=== PATIENT | female | born 1965 | race Caucasian/White ===

== ENCOUNTER 2019-05-29 18:56 | Emergency (ER) | payer SELFPAY ==
[~2019-05-29] VITALS: Ht 172.7 cm; Wt 68.0 kg
[2019-05-29 19:24] VITALS: BP 132/92
[2019-05-29] MEDS ORDERED: FLUORESCEIN OPHTH TEST STRIP. OS ONE (19:30)
[2019-05-29] MEDS ORDERED: TETRACAINE 0.5% OPHTH SOLUTION 4ML BOTTLE. OS ONE (19:30)
[2019-05-29] MEDS ORDERED: HYDR-3164 PO (19:54)
--- NOTE | 2019-05-29 19:55 | PHYS DOC ---
Past Medical History Past Medical History: No Pertinent History Past Surgical History: No Surgical History Alcohol Use: Rarely Drug Use: Marijuana Adult General Chief Complaint Chief Complaint: FOREIGN BODY/EYES HPI HPI Patient is a 53 year old female who presents to the ED today complaining of right eye foreign body sensation. Patient states she was combing her hair with a hair brush when she accidentally scratched her eye with the brush bristles, this happened 4 days ago. Patient denies any vision loss. Review of Systems Review of Systems Constitutional: Denies fever or chills [] Eyes: Reports foreign body sensation to the right eye Musculoskeletal: Denies back pain or joint pain [] Integument: Denies rash or skin lesions [] Neurologic: Denies headache, focal weakness or sensory changes [] All other systems were reviewed and found to be within normal limits, except as documented in this note. Current Medications Current Medications Current Medications Medications (Trade) Dose Ordered Sig/Daisha Start Time Stop Time Status Last Admin Dose Admin Acetaminophen/ Hydrocodone Bitart (Lortab 5/325) 2 tab 1X ONCE 05/29/19 20:00 05/29/19 20:01 Diphtheria/ Tetanus/Acell Pertussis (Boostrix) 0.5 ml ONCE ONCE 05/29/19 20:00 05/29/19 20:01 Erythromycin (Romycin) 0.25 inch 1X ONCE 05/29/19 20:00 05/29/19 20:01 Fluorescein Sodium (Ful-Purvi) 1 strip 1X ONCE 05/29/19 19:30 05/29/19 19:31 DC 05/29/19 19:35 1 STRIP Tetracaine HCl (Tetracaine) 1 drop 1X ONCE 05/29/19 19:30 05/29/19 19:31 DC 05/29/19 19:35 1 DROP Allergies Allergies Allergies Coded Allergies Type Severity Reaction Last Updated Verified No Known Drug Allergies 05/29/19 No Physical Exam Physical Exam Constitutional: Well developed, well nourished, no acute distress, non-toxic appearance. [] Eyes: PERRLA, EOMI, right conjunctiva is moderately injected with clear fluid Right eye exam under brannon lamp Right eye was numbed with tetracaine and stained with fluorescein. There is an obvious small corneal abrasion noted at 1600 position. Skin: Warm, dry, no erythema, no rash. [] Neurologic: Alert and oriented X 3, normal motor function, normal sensory function, no focal deficits noted. [] Psychologic: Affect normal, judgement normal, mood normal. [] Current Patient Data Vital Signs Vital Signs Date Time Temp Pulse Resp B/P (MAP) Pulse Ox O2 Delivery O2 Flow Rate FiO2 05/29/19 19:24 98.1 85 18 132/92 (105) 96 Room Air 98.1 EKG EKG [] Radiology/Procedures Radiology/Procedures [] Course & Med Decision Making Course & Med Decision Making Pertinent Labs and Imaging studies reviewed. (See chart for details) This is a 53-year-old female patient who presents to the ED today with a corneal abrasion to the right eye. Discharged on erythromycin. Follow-up with primary care doctor or real estate sales associate in one week. Tetanus updated. Dragon Disclaimer Dragon Disclaimer This electronic medical record was generated, in whole or in part, using a voice recognition dictation system. Departure Departure Impression: Primary Impression: Corneal abrasion, right Disposition: HOME, SELF-CARE Condition: STABLE Referrals: NO PCP (PCP) AZUCENA WELLER MD follow up in one week Patient Instructions: Eye - Corneal Abrasion, [id number] Additional Instructions: You have a corneal abrasion to the right eye. Use erythromycin ointment every 4 hours while awake to the affected eye for 7 days. Please follow-up with your own doctor or the provided real estate sales associate in 1-2 weeks. Take the prescribed pain medicine as needed for pain. You can patch the eye for comfort. Scripts Hydrocodone/Apap 5-325 (NORCO 5-325 TABLET) 1 Each Tablet 1 TAB PO Q6HRS, #12 TAB Prov: ANNI KEY APRN 05/29/19 Problem Qualifiers Primary Impression: Corneal abrasion, right Encounter type: initial encounter Qualified Codes: S05.01XA - Injury of conjunctiva and corneal abrasion without foreign body, right eye, initial encounter ANNI KEY APRN May 29, 2019 19:55
[2019-05-29] MEDS ORDERED: DIPHTH,PERTUSS(ACELL),TET TOX 0.5 ML DISP.SYRIN. VAX IM ONE (20:00)
[2019-05-29] MEDS ORDERED: ERYTHROMYCIN 0.5% OPHTH OINTMENT 1GM TUBE. OS ONE (20:00)
[2019-05-29] MEDS ORDERED: HYDROcodone/APAP 5/325MG 1 TAB TABLET PO ONE (20:00)
== END 2019-05-29 20:03 | disposition home or self-care (01) ==
LOC: ER 18:56
DX: S05.01XA Injury of conjunctiva and corneal abrasion without foreign body, right eye, initial encounter (principal); W22.8XXA Striking against or struck by other objects, initial encounter; Y93.89 Activity, other specified; Y92.89 Other specified places as the place of occurrence of the external cause; Y99.8 Other external cause status
CPT/HCPCS: 90471; 90715; 99283-25

== ENCOUNTER 2021-12-07 21:07 | Emergency (ER) | payer SELFPAY ==
[~2021-12-07] VITALS: Ht 170.2 cm; Wt 70.4 kg
[~2021-12-07 21:07] MED LIST: ACET325T9 PO; DOCU-148 PO; HYDR-3164 PO; LACT1CAP6 PO; ONDA4TAB7 PO
[2021-12-07] MEDS ORDERED: DEXAMETHASONE SOD PHOS 20 MG/5 ML VIAL. IV ONE (21:30)
[2021-12-07] MEDS ORDERED: BENZOCAINE/MENTHOL LOZENGE. PO PRN (21:30)
[2021-12-07] MEDS ORDERED: IV NORMAL SALINE 1000ML BAG 1,000 ML IV SCH (21:30)
[2021-12-07 22:10] LABS: BASO % 0 % (0-3); EOS # 0.1 x10^3/uL (0.0-0.7); EOS % 1 % (0-3); HEMATOCRIT 43.6 % (36.0-47.0); HEMOGLOBIN 14.6 g/dL (12.0-15.5); LYMPH # 1.6 x10^3/uL (1.0-4.8); LYMPH % 18 % (24-48); MEAN CORPUSCULAR HEMOGLOBIN 31 pg (25-35); MEAN CORPUSCULAR HGB CONC 34 g/dL (31-37); MEAN CORPUSCULAR VOLUME 93 fL (79-100); MONO # 0.8 x10^3/uL (0.0-1.1); MONO % 10 % (0-9); NEUT # 6.2 x10^3/uL (1.8-7.7); NEUT % 70 % (31-73); PLATELET COUNT 270 x10^3/uL (140-400); RED BLOOD COUNT 4.71 x10^6/uL (3.50-5.40); RED CELL DISTRIBUTION WIDTH 12.8 % (11.5-14.5); WHITE BLOOD COUNT 8.8 x10^3/uL (4.0-11.0)
[2021-12-07 22:37] LABS: INFLUENZA A PATIENT NEGATIVE (NEGATIVE); INFLUENZA B PATIENT NEGATIVE (NEGATIVE)
[2021-12-07 22:38] LABS: CALCIUM 8.2 mg/dL (8.5-10.1); CREATININE 0.7 mg/dL (0.6-1.0); GFR 86.2; POTASSIUM 3.9 mmol/L (3.5-5.1)
[2021-12-07 22:44] LABS: ALBUMIN 2.9 g/dL (3.4-5.0); ALBUMIN/GLOBULIN RATIO 0.7 (1.0-1.7); TOTAL BILIRUBIN 0.5 mg/dL (0.2-1.0); TOTAL PROTEIN 7.1 g/dL (6.4-8.2)
[2021-12-07] MEDS ORDERED: IOHEXOL 350 MG/ML 100 ML VIAL. IV ONE (22:45)
--- NOTE | 2021-12-07 22:48 | PHYS DOC ---
Past Medical History Past Medical History: Other Additional Past Medical Histor: C DIFF 2010 Past Surgical History: Other Additional Past Surgical Histo: BREAST BIOPSY Smoking Status: Current Every Day Smoker Alcohol Use: Rarely Drug Use: Marijuana General Adult EDM: Chief Complaint: DYSPNEA/RESPIRATORY DISTRESS HPI: HPI: 56 yo F past medical history of Bacot use, presents the ED with complaints of sore throat, dry cough, shortness of breath, hoarse voice and painful swallowing for the past 2 weeks. Has been vaccinated for Covid. Reports tobacco use daily but has never been diagnosed with COPD. No known sick contacts or exposure to Covid. Has never had a Covid infection. Denies any recent surgeries, hospitalizations, mobilizations. No associated chest pain or pressure, leg swelling, near-syncope or syncope. Reports hoarse voice has been progressive for the past year. Has a family history of multiple cancers. Brother from lung cancer, mother from breast cancer and father from B-cell lymphoma, metastatic to the brain. Review of Systems: Review of Systems: Constitutional: Denies fever or chills. [] Eyes: Denies change in visual acuity. [] HENT: Denies nasal congestion or rhinorrhea Respiratory: Denies increased work of breathing or hemoptysis Cardiovascular: Denies chest pain or edema. [] GI: Denies abdominal pain, nausea, vomiting, bloody stools or diarrhea. [] : Denies dysuria or hematuria Musculoskeletal: Denies back pain or joint pain. [] Integument: Denies rash or diaphoresis Neurologic: Denies headache, focal weakness or sensory changes. [] Endocrine: Denies polyuria or polydipsia. [] Lymphatic: Denies swollen glands. [] Psychiatric: Denies depression or anxiety. [] Heart Score: C/O Chest Pain: No Risk Factors: Risk Factors: DM, Current or recent (<one month) smoker, HTN, HLP, family history of CAD, obesity. Risk Scores: Score 0 - 3: 2.5% MACE over next 6 weeks - Discharge Home Score 4 - 6: 20.3% MACE over next 6 weeks - Admit for Clinical Observation Score 7 - 10: 72.7% MACE over next 6 weeks - Early Invasive Strategies Current Medications: Current Medications Medications (Trade) Dose Ordered Sig/Daisha Start Time Stop Time Status Last Admin Dose Admin Dexamethasone Sodium Phosphate (Decadron) 10 mg 1X ONCE 2/21/22 21:30 12/07/21 21:42 DC Sodium Chloride 1,000 ml @ 1,000 mls/hr Q1H 12/07/21 21:30 12/07/21 22:29 DC Throat Lozenges (Cepacol Sore Throat Lozenge) 1 carmen PRN Q2HRS PRN 12/07/21 21:30 Allergies: Allergies: Allergies Coded Allergies Type Severity Reaction Last Updated Verified No Known Drug Allergies 05/29/19 No Physical Exam: PE: Constitutional: Very hoarse voice with no drooling or stridor, no acute distress, non-toxic appearance. HENT: Normocephalic, atraumatic, erythematous pharyngeal tonsils and oropharynx with no exudates, no angioedema/head or neck swelling, normal tympanic membranes bilaterally, points to her right anterior neck just under her jaw as a source of pain/sore throat Eyes: EOMI, conjunctiva normal, no discharge. Neck: Normal range of motion, supple, no lymphadenopathy palpable, no nuchal rigidity or meningismus Cardiovascular: S1/2 present, regular rhythm Lungs & Thorax: Speaking in full sentences, bilateral equal chest rise, no tachypnea or increased work of breathing, no wheezing/rales/crackles, clear to auscultation bilaterally, 90% on room air Abdomen: soft, no tenderness, Skin: Warm, dry, no erythema, no rash. [] Extremities: No tenderness, no cyanosis, no lower extremity edema Neurologic: Alert and oriented X 3, normal motor function, normal sensory function, no focal deficits noted. [] Psychologic: Affect normal, judgement normal, mood normal. [] Current Patient Data: Labs: Laboratory Tests Test 12/07/21 22:01 White Blood Count 8.8 x10^3/uL (4.0-11.0) Red Blood Count 4.71 x10^6/uL (3.50-5.40) Hemoglobin 14.6 g/dL (12.0-15.5) Hematocrit 43.6 % (36.0-47.0) Mean Corpuscular Volume 93 fL (79-100) Mean Corpuscular Hemoglobin 31 pg (25-35) Mean Corpuscular Hemoglobin Concent 34 g/dL (31-37) Red Cell Distribution Width 12.8 % (11.5-14.5) Platelet Count 270 x10^3/uL (140-400) Neutrophils (%) (Auto) 70 % (31-73) Lymphocytes (%) (Auto) 18 % (24-48) L Monocytes (%) (Auto) 10 % (0-9) H Eosinophils (%) (Auto) 1 % (0-3) Basophils (%) (Auto) 0 % (0-3) Neutrophils # (Auto) 6.2 x10^3/uL (1.8-7.7) Lymphocytes # (Auto) 1.6 x10^3/uL (1.0-4.8) Monocytes # (Auto) 0.8 x10^3/uL (0.0-1.1) Eosinophils # (Auto) 0.1 x10^3/uL (0.0-0.7) Basophils # (Auto) 0.0 x10^3/uL (0.0-0.2) Sodium Level 143 mmol/L (136-145) Potassium Level 3.9 mmol/L (3.5-5.1) Chloride Level 105 mmol/L (98-107) Carbon Dioxide Level 30 mmol/L (21-32) Anion Gap 8 (6-14) Blood Urea Nitrogen 11 mg/dL (7-20) Creatinine 0.7 mg/dL (0.6-1.0) Estimated GFR (Cockcroft-Gault) 86.2 BUN/Creatinine Ratio 16 (6-20) Glucose Level 98 mg/dL (70-99) Calcium Level 8.2 mg/dL (8.5-10.1) L Magnesium Level Pending Total Bilirubin Pending Aspartate Amino Transferase (AST) Pending Alanine Aminotransferase (ALT) Pending Alkaline Phosphatase Pending Total Protein Pending Albumin Pending Albumin/Globulin Ratio Pending Influenza Type A Antigen Negative (NEGATIVE) Influenza Type B Antigen Negative (NEGATIVE) SARS-CoV-2 Antigen (Rapid) Negative (NEGATIVE) Laboratory Tests 12/07/21 22:01 Laboratory Tests 12/07/21 22:01 Vital Signs: Vital Signs Date Time Temp Pulse Resp B/P (MAP) Pulse Ox O2 Delivery O2 Flow Rate FiO2 12/07/21 21:18 98.8 87 24 137/86 (103) 90 Room Air 98.8 EKG: EKG: Sinus rhythm 70 bpm, no axis deviation, normal intervals, no T wave inversion, no ST elevation or ST depression Radiology/Procedures: Radiology/Procedures: IMAGING REPORT Signed PATIENT: ROBERTA VITALE ACCOUNT: [id number] : 1965 LOCATION: ER AGE: 56 SEX: F EXAM STATUS: REG ER ORD. PHYSICIAN: MARICRUZ KEARNEY DO REASON: soa PROCEDURE: PORTABLE CHEST 1V Exam: Chest one view INDICATION: Short of air TECHNIQUE: Frontal view of the chest Comparisons: None FINDINGS: The cardiomediastinal silhouette and pulmonary vessels are within normal limits. The lung and pleural spaces are clear. IMPRESSION: No acute cardiopulmonary process. Electronically signed by: Leigha Rosado MD (12/07/2021 11:09 PM) [facility] DICTATED and SIGNED BY: LEIGHA ROSADO MD DATE: 12/07/21 [id number] 0 IMAGING REPORT Signed PATIENT: ROBERTA VITALE ACCOUNT: [id number] : 1965 LOCATION: ER AGE: 56 SEX: F EXAM STATUS: REG ER ORD. PHYSICIAN: MARICRUZ KEARNEY DO REASON: soa, r/o pe;OMNI 350, 100ML PROCEDURE: CT ANGIOGRAPHY CHEST Exam: CT chest with contrast INDICATION: Short of air TECHNIQUE: Sequential axial images through the chest obtained following the administration of 100 mL of Omni 350 IV contrast. Sagittal and coronal reformatted images were reconstructed from the axial data and reviewed. 3-D reformatted images were reconstructed from the axial data and reviewed. Exposure: One or more of the following in the visualized dose reduction techniques were utilized for this examination: 1. Automated exposure control 2. Adjustment of the MA and/or KV according to patient size 3. Use of iterative of reconstructive technique Comparisons: Chest x-ray same day FINDINGS: Visualized portions of the thyroid are unremarkable. No enlarged mediastinal lymph nodes are identified. Heart size is normal. No pericardial effusion. Thoracic aorta has normal course and caliber. Pulmonary artery is not enlarged. No pulmonary embolus identified within the main, lobar or segmental pulmonary arteries. Airways no consolidation or pneumothorax. Extensive centrilobular emphysematous change noted prominently at the upper lungs. No suspicious lung nodules. No pleural effusion or thickening. Visualized upper abdomen is unremarkable. No suspicious osseous lesions or acute fractures. IMPRESSION: 1. No pulmonary embolus identified within the main, lobar or segmental pulmonary arteries. 2. Moderate centrilobular emphysematous change. Correlate with patient's risk factors to determine the appropriateness for annual lung cancer screening. https://www.uspreventiv eservicestaskforce.org/uspstf/recommendation/tygi-dadrjc-dxowufdvn Electronically signed by: Leigha Rosado MD (12/07/2021 11:31 PM) [facility] DICTATED and SIGNED BY: LEIGHA ROSADO MD DATE: 12/07/21 [id number] IMAGING REPORT Signed PATIENT: ROBERTA VITALE ACCOUNT: [id number] : 1965 LOCATION: ER AGE: 56 SEX: F EXAM STATUS: REG ER ORD. PHYSICIAN: MARICRUZ KEARNEY DO REASON: soa, r/o pe;OMNI 350,100ML PROCEDURE: CT SOFT TISSUE NECK W/CONTRAST PQRS Compliance Statement: One or more of the following individualized dose reduction techniques were utilized for this examination: 1. Automated exposure control 2. Adjustment of the mA and/or kV according to patient size 3. Use of iterative reconstruction technique CT NECK SOFT TISSUE WITH IV CONTRAST 12/07/2021 11:09 PM Indication: Shortness of air COMPARISON: None available. TECHNIQUE: Multiple axial CT images of the neck were obtained after the intravenous administration of 100 cc Omnipaque 350. Coronal and sagittal reformats are provided. FINDINGS: No suspicious abnormality identified involving the visualized portions of the brain parenchyma and posterior fossa. The skull base is normal. The visualized paranasal sinuses are well aerated. Orbital contents appear normal. The sella turcica and cavernous sinus regions appear intact. The mastoid air cells are well aerated. The fossa of Rosenmuller is normal. Nasopharynx is normal in appearance. The parotid space contents and rubber flap tuber machine operator space contents appear intact. The parapharyngeal spaces are normal. The submandibular contents appear intact. Oral cavity, floor of mouth and sublingual space appear normal.. Oropharynx is normal in appearance. The epiglottis, aryepiglottic folds, and piriform sinuses are normal. The vallecula appears normal. There is nodular thickening identified along the left true cord measuring 1.2 x 0.9 cm x 2.2 cm. There is suggestion of involvement of the supraglottic space. Laryngeal cartilage appears symmetric. There is subglottic extension of the nodular density. The thyroid gland is normal in appearance. The carotid space contents are normal. No pathologically enlarged cervical lymph nodes. The perivertebral space contents are normal. The supraclavicular regions appear intact. The visualized mediastinum is normal. Mild centrilobular pulmonary emphysema. Mild cervical spondylosis at C5-C6 and C6-C7. IMPRESSION: There is a nodular density along the left true cord extending to the supraglottic and subglottic space measuring 1.2 x 0.9 x 2.2 cm. Direct v isualization is recommended to assess for neoplastic process. No pathologically enlarged cervical lymph nodes. Electronically signed by: Julio César Fernandez MD (12/07/2021 11:34 PM) [facility] DICTATED and SIGNED BY: JULIO CÉSAR FERNANDEZ MD DATE: 12/07/21 [id number] 0 Course & Med Decision Making: Course & Med Decision Making Pertinent Labs and Imaging studies reviewed. (See chart for details) Concern for COPD >> URI in the setting of chronic course of voice. Patient was treated with steroids, breathing treatments and cepacol. After breathing treatments pt had multiple episodes of a productive cough with yellow sputum. R eports her shortness of breath has resolved. CT of the chest shows no infiltrate, pneumothorax or pulmonary embolus. 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 [facility] with no ENT coverage. On reevaluation patient is saturating above 94%, not requiring any supplemental oxygen. Patient is able to speak in full sentences with no respiratory distress and is protecting her airway. Patient with no drooling, stridor or tripod positioning. Is able to ambulate without any respiratory distress. Patient does not require any supplemental oxygen. Rapid Covid and flu were negative. I suspect patient may have early COPD. Will treat for exacerbation with prednisone and steroids. Will also prescribe Cepacol for her sore throat. Both CT reports printed and given to patient to take to ENT for urgent evaluation of vocal cord mass. Patient understands this may be benign versus malignant process. Will discharge home with strict ED return precautions were given for difficulties breathing, speech changes, drooling, increased work of breathing or fever. Encouraged urgent outpatient follow-up with PMD for routine care and urgent follow-up with ENT. Life-threatening processes were considered but are low suspicion at this time, given history, physical exam and ED workup. Pt was educated on all prescription medications and adverse effects. All patient's questions were answered and pt was stable at time of discharge. Life/limb-threatening differential includes but is not limited to, joceline's angina, peritonsillar abscess, retropharyngeal abscess, epiglottitis, bacterial tracheitis, uvulitis, sepsis, mastoiditis, traumatic injury, carotid/vertebral dissection, meningitis/encephalitis, intracranial aneurysms or neurologic process. I have spoken with the patient and/or caregivers. I explained the patient's condition, diagnoses and treatment plan based on the information available to me at this time. I have answered the patient and/or caregiver's questions and addressed any concerns. The patient and/or caregivers have a good understanding of patient's diagnosis, condition and treatment plan as can be expected at this point. Vital signs have been stable. Patient's condition is stable and appropriate for discharge from the emergency department. Patient will pursue further outpatient evaluation with primary care physician or other designated or consulting physician as outlined in the discharge instructions. The patient and/or caregivers are agreeable to this plan of care and follow-up instructions have been explained in detail. The patient and/or caregivers have received these instructions in written form and have expressed an understanding of the discharge instructions. The patient and/or caregivers are aware that any significant change of condition or worsening of symptoms should prompt immediate return to this or the closest emergency department or call to 911. Jaimee Disclaimer: Jaimee Disclaimer: This electronic medical record was generated, in whole or in part, using a voice recognition dictation system. Departure Departure Impression: Primary Impression: Hoarseness of voice Additional Impressions: COPD (chronic obstructive pulmonary disease) Vocal cord mass Disposition: HOME / SELF CARE / HOMELESS Condition: STABLE Referrals: NO PCP (PCP) Follow-up with your primary care physician in 24 to 48 hours OR FOLLOW UP WITH FAMILY MEDICINE: [address] [place] [address] Patient Instructions: Chronic Obstructive Pulmonary Disease, Hoarseness, Vocal Cord Paralysis Additional Instructions: FOLLOW UP WITH ENT: FOR DEFINITIVE MANAGEMENT of vocal cord mass, turn to ED immediately if you should develop any difficulties breathing, increased work of breathing, drooling or inability to control your secretions or fever Otolaryngology [address] [facility], [address] [place] [address] automobile [employer] [facility] [address] [place] [address] EMERGENCY DEPARTMENT GENERAL DISCHARGE INSTRUCTIONS Thank you for coming to [facility] Emergency Department (ED) today and trusting us with you care. We trust that you had a positive experience in our Emergency Department. If you wish to speak to the department management, you may call the Director at [phone]. YOUR FOLLOW UP INSTRUCTIONS ARE FOLLOWS: 1. Do you have a private Doctor? If you do not have a private doctor, please ask for a resource list of physicians or clinics that may be able to assist you with follow up care. 2. The Emergency Physicain has interpreted your x-rays. The X-Ray specialist will also review them. If there is a change in the findings, you will be notified in 48 hours when at all possible. 3. A lab test or culture has been done, your results will be reviewed and you will be notified if you need a change in treatment. ADDITIONAL INSTRUCTIONS AND INFORMATION: 1. Your care today has been supervised by a physician who is specially trained in emergency care. Many problems require more than one evaluation for a complete diagnosis and treatment. We recommend that you schedule your follow up appointment as recommended to ensure complete treatment of you illness or injury. If you are unable to obtain follow up care and continue to have a problem, or if your condition worsens, we recommend that you return to the ED. 2. We are not able to safely determine your condition over the phone nor are we able to give sound medical advice over the phone. For these safety reasons, if you call for medical advice we will ask you to come to the ED for further evaluation. 3. If you have any questions regarding these discharge instructions please call the ED at [phone]. SAFETY INFORMATION: In the interest of safety, wellness, and injury prevention; we encourage you to wear your sealbelt, if you smoke; quite smoking, and we encourage family to use a protective helmet for bicycling and other sporting events that present an increased risk for head injury. IF YOUR SYMPTOMS WORSEN OR NEW SYMPTOMS DEVELOP, OR YOU HAVE CONCERNS ABOUT YOUR CONDITION; OR IF YOUR CONDITION WORSENS WHILE YOU ARE WAITING FOR YOUR FOLLOW UP APPOINTMENT; EITHER CONTACT YOUR PRIMARY CARE DOCTOR, THE PHYSICIAN WHOSE NAME AND NUMBER YOU WERE GIVEN, OR RETURN TO THE ED IMMEDIATELY. Scripts Benzocaine/Menthol (CEPACOL SORE THROAT LOZENGE) 1 Each Lozenge 1 TAB PO Q4HRS for sore throat for 3 Days, #18 TAB 0 Refills Prov: MARICRUZ KEARNEY DO 12/08/21 Albuterol Sulfate (VENTOLIN HFA INHALER) 18 Gm Hfa.aer.ad 2 PUFF INH QID for FOR ASTHMA, #1 INHALER 0 Refills Prov: MARICRUZ KEARNEY DO 12/08/21 Prednisone (PREDNISONE) 50 Mg Tablet 1 TAB PO DAILY, #5 TAB Prov: MARICRUZ KEARNEY DO 12/08/21 MARICRUZ KEARNEY DO Dec 07, 2021 22:48
[2021-12-07] MEDS ORDERED: CONTRAST GIVEN. MC PRN (23:00)
--- NOTE | 2021-12-07 23:12 | RAD ---
Exam: Chest one view INDICATION: Short of air TECHNIQUE: Frontal view of the chest Comparisons: None FINDINGS: The cardiomediastinal silhouette and pulmonary vessels are within normal limits. The lung and pleural spaces are clear. IMPRESSION: No acute cardiopulmonary process. Electronically signed by: Leigha Naidu MD (12/07/2021 11:09 PM) [facility]
--- NOTE | 2021-12-07 23:34 | RAD ---
Exam: CT chest with contrast INDICATION: Short of air TECHNIQUE: Sequential axial images through the chest obtained following the administration of 100 mL of Omni 350 IV contrast. Sagittal and coronal reformatted images were reconstructed from the axial da ta and reviewed. 3-D reformatted images were reconstructed from the axial data and reviewed. Exposure: One or more of the following in the visualized dose reduction techniques were utilized for this examination: 1. Automated exposure control 2. Adjustment of the MA and/or KV according to patient size 3. Use of iterative of reconstructive technique Comparisons: Chest x-ray same day FINDINGS: Visualized portions of the thyroid are unremarkable. No enlarged mediastinal lymph nodes are identifi ed. Heart size is normal. No pericardial effusion. Thoracic aorta has normal course and caliber. Pulmonar y artery is not enlarged. No pulmonary embolus identified within the main, lobar or segmental pulmona ry arteries. Airways no consolidation or pneumothorax. Extensive centrilobular emphysematous change noted prominen tly at the upper lungs. No suspicious lung nodules. No pleural effusion or thickening. Visualized upper abdomen is unremarkable. No suspicious osseous lesions or acute fractures. IMPRESSION: 1. No pulmonary embolus identified within the main, lobar or segmental pulmonary arteries. 2. Moderate centrilobular emphysematous change. Correlate with patient's risk factors to determine t he appropriateness for annual lung cancer screening. https://www.uspreventiveservicestaskforce.org/uspstf/recommendation/lesi-kdlvky-llmfslhfs Electronically signed by: Leigha Naidu MD (12/07/2021 11:31 PM) [facility]
--- NOTE | 2021-12-07 23:36 | RAD ---
PQRS Compliance Statement: One or more of the following individualized dose reduction techniques were utilized for this examinat ion: 1. Automated exposure control 2. Adjustment of the mA and/or kV according to patient size 3. Use of iterative reconstruction technique CT NECK SOFT TISSUE WITH IV CONTRAST 12/07/2021 11:09 PM Indication: Shortness of air COMPARISON: None available. TECHNIQUE: Multiple axial CT images of the neck were obtained after the intravenous administration of 100 cc Omnipaque 350. Coronal and sagittal reformats are provided. FINDINGS: No suspicious abnormality identified involving the visualized portions of the brain parenchyma and po sterior fossa. The skull base is normal. The visualized paranasal sinuses are well aerated. Orbital c ontents appear normal. The sella turcica and cavernous sinus regions appear intact. The mastoid air c ells are well aerated. The fossa of Rosenmuller is normal. Nasopharynx is normal in appearance. The parotid space contents a nd senior dot net developer space contents appear intact. The parapharyngeal spaces are normal. The submandibular contents appear intact. Oral cavity, floor of mouth and sublingual space appear normal.. Oropharynx is normal in appearance. The epiglottis, aryepiglottic folds, and piriform sinuses are nor mal. The vallecula appears normal. There is nodular thickening identified along the left true cord me asuring 1.2 x 0.9 cm x 2.2 cm. There is suggestion of involvement of the supraglottic space. Laryngea l cartilage appears symmetric. There is subglottic extension of the nodular density. The thyroid glan d is normal in appearance. The carotid space contents are normal. No pathologically enlarged cervical lymph nodes. The perivertebral space contents are normal. The supraclavicular regions appear intact. The visualiz ed mediastinum is normal. Mild centrilobular pulmonary emphysema. Mild cervical spondylosis at C5-C6 and C6-C7. IMPRESSION: There is a nodular density along the left true cord extending to the supraglottic and subglottic spac e measuring 1.2 x 0.9 x 2.2 cm. Direct visualization is recommended to assess for neoplastic process. No pathologically enlarged cervical lymph nodes. Electronically signed by: Tami Mancuso MD (12/07/2021 11:34 PM) [facility]
[2021-12-08 01:44] LABS: BARBITURATES NEG (NEG); BENZODIAZEPINES NEG (NEG); CANNABINOIDS POS (NEG); COCAINE NEG (NEG); METHADONE NEG (NEG); OPIATES NEG (NEG); PHENCYCLIDINE NEG (NEG)
[2021-12-08 01:50] LABS: AMPHETAMINE/METHAMPHETAMINE NEG (NEG)
[2021-12-08] MEDS ORDERED: IPRATRPIUM/ALBUTEROL 0.5/2.5MG 3 ML NEBU. NEB ONE (02:00)
[2021-12-08 02:30] VITALS: BP 137/87
[2021-12-08] MEDS ORDERED: PRED50TA PO (03:56)
[2021-12-08] MEDS ORDERED: BENZ1LOZ48 PO (03:56)
[2021-12-08] MEDS ORDERED: VENTOLIN HFA18 GM INH (03:56)
--- NOTE | 2021-12-08 05:01 | EKG ---
[facility] [address] [place] [address] Test Date: 2021-12-07 Test Time: 21:58:18 Pat Name: ROBERTA VITALE Department: Room: Gender: F Sustainability Coach: : 1965 Requested By: MARICRUZ KEARNEY Order Number: [id number] Reading MD: Measurements Intervals Ada Rate: 75 P: 67 DE: 144 QRS: 69 QRSD: 78 T: 64 QT: 384 QTc: 431 Interpretive Statements SINUS RHYTHM ATRIAL PREMATURE COMPLEX(ES) LEFT ATRIAL ABNORMALITY ABNORMAL ECG RI6.02 No previous ECG available for comparison
== END 2021-12-08 04:05 | disposition home or self-care (01) ==
LOC: ER 21:07
DX: J44.9 Chronic obstructive pulmonary disease, unspecified (principal); J38.2 Nodules of vocal cords; R49.0 Dysphonia; F17.200 Nicotine dependence, unspecified, uncomplicated; Z20.822 Contact with and (suspected) exposure to COVID-19
CPT/HCPCS: 70491; 71045; 71275; 80053; 80307; 83735; 83880; 84484; 85025; 87070; 87428; 87880; 93005; 94640; 96361; 96374; 99285; C9803; J1100; J7030; Q9967; U0003

== ENCOUNTER 2021-12-10 03:49 | Emergency (ER) | payer SELFPAY ==
[~2021-12-10] VITALS: Ht 180.3 cm; Wt 80.0 kg
[~2021-12-10 03:49] MED LIST changes: +BENZ1LOZ48 PO; +PRED50TA PO; +VENTOLIN HFA18 GM INH
[2021-12-10] MEDS ORDERED: RACEPINEPHRINE 2.25% 0.5 ML NEBU. NEB ONE ×2 (04:00→05:00)
[2021-12-10 04:09] LABS: BASO # 0.1 x10^3/uL (0.0-0.2); BASO % 1 % (0-3); EOS # 0.1 x10^3/uL (0.0-0.7); EOS % 1 % (0-3); HEMATOCRIT 41.5 % (36.0-47.0); HEMOGLOBIN 13.5 g/dL (12.0-15.5); LYMPH # 2.2 x10^3/uL (1.0-4.8); LYMPH % 19 % (24-48); MEAN CORPUSCULAR HEMOGLOBIN 30 pg (25-35); MEAN CORPUSCULAR HGB CONC 33 g/dL (31-37); MEAN CORPUSCULAR VOLUME 93 fL (79-100); MONO % 9 % (0-9); NEUT # 8.4 x10^3/uL (1.8-7.7); NEUT % 72 % (31-73); PLATELET COUNT 290 x10^3/uL (140-400); RED BLOOD COUNT 4.46 x10^6/uL (3.50-5.40); WHITE BLOOD COUNT 11.7 x10^3/uL (4.0-11.0)
[2021-12-10 04:15] LABS: CALCIUM 8.2 mg/dL (8.5-10.1); CREATININE 0.8 mg/dL (0.6-1.0); GFR 73.9; POTASSIUM 3.4 mmol/L (3.5-5.1)
[2021-12-10 04:20] LABS: ALBUMIN/GLOBULIN RATIO 0.8 (1.0-1.7); C-REACTIVE PROTEIN 9.8 mg/L (0-3.3); TOTAL BILIRUBIN 0.3 mg/dL (0.2-1.0); TOTAL PROTEIN 6.7 g/dL (6.4-8.2)
--- NOTE | 2021-12-10 04:21 | PHYS DOC ---
Past Medical History Past Medical History: Other Additional Past Medical Histor: C DIFF 2010 Past Surgical History: No Surgical History Additional Past Surgical Histo: BREAST BIOPSY Smoking Status: Former Smoker Alcohol Use: None Drug Use: Marijuana Adult General Chief Complaint Chief Complaint: SHORTNESS OF BREATH HPI HPI The patient is a 56-year-old female with a history of tobacco abuse and who reports that she is otherwise healthy. 3 days ago she presented to the emergency department here at [facility] for evaluation of sore throat, dry cough, hoarse voice, discomfort with swallowing and mild shortness of breath with onset about 2 weeks prior. At that visit, labs were unremarkable, CT scan of the chest was without evidence of acute process and a mass was found along the left true vocal cord measuring 1.2 x 0.9 x 2.2 cm, with a suggestion of involvement of the supraglottic and subglottic spaces. Per documentation from the prior visit, the patient was discharged with a course of oral prednisone and directed to follow-up closely with ENT in the office, which she has not yet been able to do. Ms. Miramontes presents for evaluation of difficulty breathing and stridor with onset earlier overnight. She states that the symptoms she presented to this facility for 3 days ago have all been getting worse over the past day or two, causing her to have to sleep sitting up, but that she did not have significant difficulty breathing until she woke up about 3 hours ago with those symptoms. Upon initial evaluation here in the emergency department patient is alert and oriented x4 and speaking comfortably in full sentences in a hoarse voice. She is audibly stridorous. Oxygen saturation is in the low to mid 90s on room air. Other vital signs are appropriate. She is in no acute distress. Review of Systems Review of Systems A 12 point review of systems was completed and was negative except where noted in HPI above. Current Medications Current Medications Current Medications Medications (Trade) Dose Ordered Sig/Daisha Start Time Stop Time Status Last Admin Dose Admin Ampicillin Sodium/ Sulbactam Sodium 3 gm/Sodium Chloride 100 ml @ 200 mls/hr 1X ONCE 12/10/21 05:00 12/10/21 05:29 12/10/21 04:40 200 MLS/HR Clindamycin Phosphate 50 ml @ 100 mls/hr 1X ONCE 12/10/21 05:00 12/10/21 05:29 12/10/21 04:26 100 MLS/HR Dexamethasone Sodium Phosphate (Decadron) 12 mg 1X ONCE 12/10/21 04:30 12/10/21 04:31 DC 12/10/21 04:26 12 MG Epinephrine (S2 Racepinephrine) 0.5 ml 1X ONCE 12/10/21 05:00 12/10/21 05:01 DC Info (CONTRAST GIVEN -- Rx MONITORING) 1 each PRN DAILY PRN 12/10/21 04:45 12/12/21 04:44 Iohexol (Omnipaque 300 Mg/ml) 70 ml 1X ONCE 12/10/21 05:00 12/10/21 05:01 DC Sodium Chloride 1,000 ml @ 1,000 mls/hr 1X ONCE 12/10/21 04:30 12/10/21 05:29 12/10/21 04:26 1,000 MLS/HR Allergies Allergies Allergies Coded Allergies Type Severity Reaction Last Updated Verified No Known Drug Allergies 05/29/19 No Physical Exam Physical Exam Older female appearing nontoxic and in no acute distress. Head is normocephalic and atraumatic. Neck is supple and nontender. Oropharynx is moist. No posterior oropharyngeal erythema, tonsillar exudate or swelling or uvular deviation. Patient is tolerating secretions appropriately and speaking in a hoarse voice. She has soft but audible stridor. Lungs with referred upper airway sounds, no crackles, wheezes or other adventitious sounds heard. There is a normal S1 and S2 without rubs or gallops and capillary refill is ap propriate, less than 2 seconds globally. Abdomen is soft, nontender and nondistended. Skin is warm and dry without cyanosis, clubbing or edema. Psychiatrically, the patient demonstrates appropriate mood and affect and is alert. Current Patient Data Vital Signs Vital Signs Date Time Temp Pulse Resp B/P (MAP) Pulse Ox O2 Delivery O2 Flow Rate FiO2 12/10/21 04:31 95 Nasal Cannula 2.0 12/10/21 04:00 23 12/10/21 03:50 98.0 95 163/81 (108) 98.0 Lab Values Laboratory Tests Test 12/10/21 04:00 White Blood Count 11.7 x10^3/uL (4.0-11.0) H Red Blood Count 4.46 x10^6/uL (3.50-5.40) Hemoglobin 13.5 g/dL (12.0-15.5) Hematocrit 41.5 % (36.0-47.0) Mean Corpuscular Volume 93 fL (79-100) Mean Corpuscular Hemoglobin 30 pg (25-35) Mean Corpuscular Hemoglobin Concent 33 g/dL (31-37) Red Cell Distribution Width 13.0 % (11.5-14.5) Platelet Count 290 x10^3/uL (140-400) Neutrophils (%) (Auto) 72 % (31-73) Lymphocytes (%) (Auto) 19 % (24-48) L Monocytes (%) (Auto) 9 % (0-9) Eosinophils (%) (Auto) 1 % (0-3) Basophils (%) (Auto) 1 % (0-3) Neutrophils # (Auto) 8.4 x10^3/uL (1.8-7.7) H Lymphocytes # (Auto) 2.2 x10^3/uL (1.0-4.8) Monocytes # (Auto) 1.0 x10^3/uL (0.0-1.1) Eosinophils # (Auto) 0.1 x10^3/uL (0.0-0.7) Basophils # (Auto) 0.1 x10^3/uL (0.0-0.2) Sodium Level 142 mmol/L (136-145) Potassium Level 3.4 mmol/L (3.5-5.1) L Chloride Level 105 mmol/L (98-107) Carbon Dioxide Level 32 mmol/L (21-32) Anion Gap 5 (6-14) L Blood Urea Nitrogen 14 mg/dL (7-20) Creatinine 0.8 mg/dL (0.6-1.0) Estimated GFR (Cockcroft-Gault) 73.9 BUN/Creatinine Ratio 18 (6-20) Glucose Level 152 mg/dL (70-99) H Lactic Acid Level 1.3 mmol/L (0.4-2.0) Calcium Level 8.2 mg/dL (8.5-10.1) L Total Bilirubin 0.3 mg/dL (0.2-1.0) Aspartate Amino Transferase (AST) 132 U/L (15-37) H Alanine Aminotransferase (ALT) 68 U/L (14-59) H Alkaline Phosphatase 80 U/L (46-116) C-Reactive Protein, Quantitative 9.8 mg/L (0-3.3) H Total Protein 6.7 g/dL (6.4-8.2) Albumin 3.0 g/dL (3.4-5.0) L Albumin/Globulin Ratio 0.8 (1.0-1.7) L Laboratory Tests 12/10/21 04:00 Laboratory Tests 12/10/21 04:00 EKG EKG [] Radiology/Procedures Radiology/Procedures PQRS Compliance Statement: One or more of the following individualized dose reduction techniques were utilized for this examination: 1. Automated exposure control 2. Adjustment of the mA and/or kV according to patient size 3. Use of iterative reconstruction technique CT NECK SOFT TISSUE WITH IV CONTRAST 12/10/2021 4:00 AM Indication: Vocal cord mass noted few days ago COMPARISON: CT neck 12/07/2021. TECHNIQUE: Multiple axial CT images of the neck soft tissues were obtained after intravenous administration of 70 cc Omnipaque 300. Coronal and sagittal reformats are provided. FINDINGS: No suspicious abnormality identified involving the visualized portions of the brain parenchyma and posterior fossa. The skull base is normal. The visualized paranasal sinuses are well aerated. Orbital contents appear normal. The sella turcica and cavernous sinus regions appear intact. The mastoid air cells are well aerated. The fossa of Rosenmuller is normal. Nasopharynx is normal in appearance. The parotid space contents and heel builder space contents appear intact. The parapharyngeal spaces are normal. The submandibular contents appear intact. Oral cavity, floor of mouth and sublingual space appear normal.. Oropharynx is normal in appearance. The epiglottis, aryepiglottic folds, and piriform sinuses are normal. The vallecula appears normal. Stable nodular thickening along the true cords with supraglottic and subglottic extension, similar to prior examination. The thyroid gland is normal in appearance. The carotid space contents are normal. No pathologically enlarged cervical lymph nodes. The perivertebral space contents are normal. The supraclavicular regions appear intact. The visualized mediastinum is normal. The visualized lungs appear clear. No significant osseous abnormality. Centrilobular pulmonary emphysema. IMPRESSION: Stable nodular soft tissue thickening along the true cords with subglottic and supraglottic involvement, similar to prior examination. There is near complete effacement of the laryngeal airway, similar to the prior examination. Direct visualization is recommended for further evaluation. No pathologically enlarged cervical lymph nodes. No suspicious laryngeal or pharyngeal mass. Electronically signed by: Julio César Fernandez MD (12/10/2021 4:26 AM) [facility] DICTATED and SIGNED BY: JULIO CÉSAR FERNANDEZ MD DATE: 12/10/21 [id number] Course & Med Decision Making Course & Med Decision Making 56-year-old female here with symptoms suggestive of developing upper airway obstruction secondary to the vocal cord mass which was seen on imaging a few days ago. Will give racemic epinephrine and IV dexamethasone, will draw cult ures and will give empiric doses of Unasyn and clindamycin, will give a liter of fluids and will draw labs as noted. Patient will be sent to the CT scanner for repeat imaging. Plan for urgent transfer to a center with ENT available. Contact made with [facility]. 0502: Patient resting comfortably in no acute distress on frequent serial reassessments. Endorses substantial improvement in her breathing after dexamethasone, racemic epi treatments x2 and empiric antibiotics. She is resting comfortably, speaking comfortably in full sentences and saturating at 97% on 1 L per nasal cannula. No longer acutely stridorous. Case discussed in detail with Dr. Tamez, on-call ENT surgeon at [facility], who agrees with management thus far and accepts the patient for immediate transfer to for surgical attention. Stable for transfer at this time. Critical care time 55 minutes, independent of any separately-billed procedure time. Dragon Disclaimer Dragon Disclaimer This electronic medical record was generated, in whole or in part, using a voice recognition dictation system. Departure Departure Impression: Primary Impression: Vocal cord mass Additional Impression: Stridor Disposition: 02 SHORT TERM HOSPITAL Condition: GUARDED Referrals: NO PCP (PCP) Problem Qualifiers SABINA CARRERA MD Dec 10, 2021 04:21
--- NOTE | 2021-12-10 04:28 | RAD ---
PQRS Compliance Statement: One or more of the following individualized dose reduction techniques were utilized for this examinat ion: 1. Automated exposure control 2. Adjustment of the mA and/or kV according to patient size 3. Use of iterative reconstruction technique CT NECK SOFT TISSUE WITH IV CONTRAST 12/10/2021 4:00 AM Indication: Vocal cord mass noted few days ago COMPARISON: CT neck 12/07/2021. TECHNIQUE: Multiple axial CT images of the neck soft tissues were obtained after intravenous administ ration of 70 cc Omnipaque 300. Coronal and sagittal reformats are provided. FINDINGS: No suspicious abnormality identified involving the visualized portions of the brain parenchyma and po sterior fossa. The skull base is normal. The visualized paranasal sinuses are well aerated. Orbital c ontents appear normal. The sella turcica and cavernous sinus regions appear intact. The mastoid air c ells are well aerated. The fossa of Rosenmuller is normal. Nasopharynx is normal in appearance. The parotid space contents a nd bottle hop space contents appear intact. The parapharyngeal spaces are normal. The submandibular contents appear intact. Oral cavity, floor of mouth and sublingual space appear normal.. Oropharynx is normal in appearance. The epiglottis, aryepiglottic folds, and piriform sinuses are nor mal. The vallecula appears normal. Stable nodular thickening along the true cords with supraglottic a nd subglottic extension, similar to prior examination. The thyroid gland is normal in appearance. The carotid space contents are normal. No pathologically enlarged cervical lymph nodes. The perivertebral space contents are normal. The supraclavicular regions appear intact. The visualiz ed mediastinum is normal. The visualized lungs appear clear. No significant osseous abnormality. Cent rilobular pulmonary emphysema. IMPRESSION: Stable nodular soft tissue thickening along the true cords with subglottic and supraglottic involveme nt, similar to prior examination. There is near complete effacement of the laryngeal airway, similar to the prior examination. Direct visualization is recommended for further evaluation. No pathologically enlarged cervical lymph nodes. No suspicious laryngeal or pharyngeal mass. Electronically signed by: Tami Mancuso MD (12/10/2021 4:26 AM) [facility]
[2021-12-10] MEDS ORDERED: DEXAMETHASONE SOD PHOS 20 MG/5 ML VIAL. IV ONE (04:30)
[2021-12-10] MEDS ORDERED: IV NORMAL SALINE 1000ML BAG 1,000 ML IV ONE (04:30)
[2021-12-10] MEDS ORDERED: CONTRAST GIVEN. MC PRN (04:45)
[2021-12-10] MEDS ORDERED: CLINDAMYCIN 900MG PREMIX 50 ML IV ONE (05:00)
[2021-12-10] MEDS ORDERED: IOHEXOL 300 MG/ML 100ML VIAL. IV ONE (05:00)
[2021-12-10] MEDS ORDERED: AMPICILLIN/SULBACTAM 3 GM in IV NORMAL SALINE 100ML 100 ML IV ONE (05:00)
[2021-12-10 05:30] VITALS: BP 150/78
[2021-12-10] MEDS ORDERED: KETOROLAC 15 MG/ML VIAL. IVP ONE (05:30)
[2021-12-10] MEDS ORDERED: DEXAMETHASONE SOD PHOS 4 MG/ML VIAL IVP ONE (06:00)
== END 2021-12-10 05:55 | disposition short-term general hospital (02) ==
LOC: ER 03:49
DX: J38.3 Other diseases of vocal cords (principal); R06.1 Stridor; Z87.891 Personal history of nicotine dependence
CPT/HCPCS: 36415; 70491; 80053; 83605; 85025; 85651; 86140; 87040; 94640; 96365; 96368; 96375; 96376; 99291; J0295; J1100; J1885; J3490; J7030